=== PATIENT | female | born 2000 | race African-American/Black ===

== ENCOUNTER 2020-12-09 11:48 | Observation (INO) | payer MEDICAID ==
[~2020-12-09] VITALS: Ht 170.2 cm; Wt 80.3 kg
== END 2020-12-09 14:00 | disposition home or self-care (01) ==
LOC: 8 EST LDRP 11:48
PROVIDERS: ADMIT Specialist; ATTEND Specialist
DX: O62.9 Abnormality of forces of labor, unspecified (principal); Z3A.39 39 weeks gestation of pregnancy
CPT/HCPCS: 99281; G0378